=== PATIENT | female | born 1975 | race Caucasian/White ===

== ENCOUNTER 2024-10-26 01:04 | Day surgery (SDC) | payer OTHER, SELFPAY ==
--- NOTE | 2024-10-19 20:33 | PM.IMHP ---
H&P: HPI History of Present Illness Date/Time: 10/19/24 20:33 Chief Complaint: RENEE Narrative: presents for repeat urethral sling Review of Systems Review of Systems: All systems reviewed & are unremarkable except as noted in HPI and below Exam Narrative: + urethral mobility Assessment and Plan Assessment and plan (1) RENEE (stress urinary incontinence, female): Code(s): N39.3 - Stress incontinence (female) (male) Status: Acute Assessment and Plan: urethral sling
[2024-10-23 08:38] VITALS: BMI 42.3
--- NOTE | 2024-10-23 08:51 | PC.NURSE ---
Report to the Outpatient Waiting Room, entrance under the green pavilion located off [facility], at time __0700_ on date _10/26/24_. Planned Procedure Time: _0900.? Time changes happen often and if your time is changed the preop area will call you the afternoon before. - You and your visitor will be asked to self-screen and do not enter if you have any COVID symptoms. Please call surgeon if you need to reschedule. - A mask is optional within the hospital at this time. Patients may have clear liquids (water, carbonated beverages, clear teas, apple juice) until 3 hours prior to surgery with a maximum of 20 ounces. - No food from midnight until time of surgery and no smoking. This includes no chewing gum, candy or mints. - Infants may have breast milk until 4 hours before surgery, formula 6 hours prior to surgery. - Children will be allowed to drink immediately following surgery.? If applicable, please bring a bottle or sippy cup to assist with drinking. Juice, water, soda, and popsicles are readily available.? For infants on formula, please bring formula the day of surgery.? Pacifiers are allowed. Take only the following medications with a SIP of water on the morning of surgery: METOPROLOL DO NOT STOP ANY OF YOUR OTHER PRESCRIPTION MEDICATIONS PRIOR TO SURGERY EXCEPT THE FOLLOWING Medications to discontinue per physician ZEPBOUND Date to take last dose 10/15/24 Please no make-up, nail mohawk, hairspray, perfume, deodorant, or body powder the day of surgery.? No jewelry (including any body piercings) or valuables the day of surgery, leave them at home.? Please take a shower or bath the night before, or the morning of, surgery with an antibacterial soap.? Wear comfortable, loose fitting clothing.? Children are encouraged to wear pajamas. - Jewelry must be removed prior to entering the operating room.? Rings and piercings that are not removed may be cut off. - The hospital will not accept responsibility for valuables.? - Please leave all valuables, including medications, at home the day of surgery. If you are going home after surgery, a licensed pile driver operator helper must drive you home.? - NO public transportation without another adult if you receive anesthesia. - We recommend that an adult stay with you for 24 hours following discharge. - We also recommend that you do not drive, make important decision, drink alcoholic beverages, or take any drugs that were not prescribed by your health care provider for at least 24 hours after your discharge time. For Pediatric surgeries, we recommend two adults accompany the child home. Follow any additional instructions given to you from your surgeon. Telephone instructions given to _PATIENT__and asked if any additional questions and then verbalized understanding. Patient advised to call surgeon office or pre surgery nurse liaison [phone] if any additional questions.
[2024-10-26] VITALS (7 sets, daily range): BP systolic 136–157; BP diastolic 57–104; PULSE 60–75; RESP 12–18; TEMP 36.2; O2SAT 95–100; BMI 42.9
--- NOTE | 2024-10-26 04:47 | WPDHPUPDATE1 ---
History and Physical Update Update Date/Time: 10/26/24 04:47 History and Physical has been reviewed, including an updated exam of the patient. There are NO changes in the patient's condition. Risks, benefits, and alternatives have been discussed and questions answered. Patient agrees to proceed with procedure.
--- NOTE | 2024-10-26 07:37 | ECG_ITS ---
Test Date: 2024-10-26 08:00:00 Measurements Intervals [place] Rate: 61 P: 56 AR: 166 QRS: 48 QRSD: 90 T: 60 QT: 417 QTc: 423 Interpretive Statements SINUS RHYTHM NONSPECIFIC T-WAVE ABNORMALITY ABNORMAL ECG No previous ECG available for comparison Electronically Signed On 10-27-2024 10:23:32 CLINICAL SUPPORT NURSE by Jet Hidalgo M.D.
--- NOTE | 2024-10-26 08:30 | P.PNAN_ITS ---
Anes - Initial Pre Proc Eval Procedure: Operation Date: 10/26/24 09:00 Proposed Procedures p Urethral Sling - Babak Oconnell MD Date/Time: 10/26/24 08:30 Surgeon: Babak Oconnell MD Pre Op Diagnosis: Stress Incont Patient Data Age: 49 Gender: F Height: 1.68 m Weight: 120.6 kg Allergies Allergy/AdvReac Type Severity Reaction Status Date / Time No Known Allergies Allergy Verified 10/23/24 08:34 Home Medications ?Medication ?Instructions ?Recorded ?Confirmed ?Type aripiprazole 2 mg tablet (Abilify) 2 mg PO HS 10/23/24 10/23/24 History fluoxetine 40 mg capsule 40 mg PO QPM 10/23/24 10/23/24 History glycopyrrolate 1 mg tablet 1 mg PO Q12H PRN secretions 10/23/24 10/23/24 History metoprolol succinate 25 mg 25 mg PO DAILY 10/23/24 10/23/24 History tablet,extended release 24 hr tirzepatide (weight loss) 5 mg/0.5 5 mg subcut WEEKLY 10/23/24 10/23/24 History mL subcutaneous pen injector (Zepbound) trazodone 50 mg tablet 50 mg PO HS 10/23/24 10/23/24 History Patient hx anesthesia problems: none Family hx anesthesia problems: none Results Review: All pre-operative results and documents have been reviewed as part of the pre- operative evaluation. [facility] Social History Social History Tobacco type: e-cigarettes/vaping Additional smoking assessment comments: TRIED A COUPLE OF TIMES Alcohol intake: current Drinks per week: 4 Substance use: former Substance use type: other Other substance usage details: CBD GUMMIES Last use: JULY Living arrangements: with family Anes - Eval Final PreProcedure Day of Procedure 10/26/24 08:30 Patient weight: morbidly obese Heart: regular rate and rhythm Lungs: clear to auscultation Airway: Mallampati scale class II Neurological: alert and oriented Last oral intake: >/= 8 hours ASA classification: III Emergent: no Anesthetic plan: proceed Anesthesia type and monitoring: general LMA and standard monitoring Results Review: All pre-operative results and documents have been reviewed as part of the pre- operative evaluation. Informed Consent: The patient's anesthetic plan and its attendant risks and benefits were discus sed with the patient/family/POA. Questions were solicited and answers provided to the satisfaction of the patient/family/POA.
[2024-10-26] MEDS: LACTATED RINGERS 1,000 ML 30 ML IV CONT (08:32)
[2024-10-26] MEDS: SCOPOLAMINE 1 MG PATCH 1 PATCH TRANSDERM (08:35)
[2024-10-26] MEDS: ceFAZolin 3 GM/D5W 100 ML 100 ML IVPB (08:50)
[2024-10-26] MEDS: BUPIVACAINE/EPINEPHRINE 0.5% 30 ML VIAL INFILTRATE (09:11)
--- NOTE | 2024-10-26 09:22 | W.PM.PROC2 ---
Procedure Note - Detailed Date of Procedure 10/26/24 Pre-op Diagnosis Stress Incont Post-op Diagnosis Same Procedure Performed mid urethral sling cystoscopy Surgeon Babak Oconnell MD Anesthesia General Indications This is a female with confirm stress urinary incontinence. She desires surgical correction. She understands the risks of bleeding, infection, injury to the urinary tract, vaginal mesh extrusion, urinary tract mesh erosion, obstructive voiding requiring a secondary procedure, hip and leg pain, dyspareunia, inability to improve overactive bladder symptoms. She agrees to proceed. She has had a previous stress incontinence operation. She understands she is at higher risk of recurrence or persistent incontinence Findings Uncomplicated urethral sling Description of Procedure She was correctly identified. Informed consent obtained. She was brought the operating room. She was given appropriate anesthesia. She was given appropriate perioperative antibiotics. A time-out performed. I marked out the site of the inner thigh incisions. I anesthetized the skin and made those incisions. I anesthetized the anterior vaginal wall over the mid urethra. I made a 1 cm incision. I dissected out laterally taking great care not to injure the refilled vaginal wall. I passed the helical trocars. First on the left. Then on the right. I did this from the thigh incision towards the vaginal incision. The sling was connected to the trocars and brought out through the thigh incision. I tensioned the sling appropriately. I cut and the plastic sheaths. I then closed the incision with 2 0 Vicryl. On cystoscopy there is no tumors or surgical artifact. There was no surgical artifact in the urethra. I cut the excess sling material. Close incisions with glue. She was awakened and transferred to the PACU in stable condition. Implants Urethral sling Estimated Blood Loss 20 Drains No Packing No Pathology None sent Complications No immediate complications Condition Stable Disposition PACU
[2024-10-26] MEDS: oxyCODONE HCL (*CRX) 5 MG TAB IR PO (10:33)
== END 2024-10-26 11:04 | disposition home or self-care (01) ==
PROVIDERS: PCP Internal Medicine; Visit Provider Urology
PROC: (CPT 57288; principal; 2024-10-26 09:00)
DX: N39.3 Stress incontinence (female) (male) (principal); F17.290 Nicotine dependence, other tobacco product, uncomplicated; R94.31 Abnormal electrocardiogram [ECG] [EKG]; E66.01 Morbid (severe) obesity due to excess calories; Z68.41 Body mass index [BMI] 40.0-44.9, adult; Z79.85 Long-term (current) use of injectable non-insulin antidiabetic drugs
CPT/HCPCS: 57288; 93005; A9270; C1771; J0690; J1100; J1885; J2250; J2405; J2704; J3010; J7120